=== PATIENT | male | born 1950 | race Caucasian/White ===

== ENCOUNTER 2016-08-26 21:48 | Emergency (ER) | payer MEDICARE, OTHER ==
[2016-08-26 22:49] LABS: URINE BILIRUBIN 1+ (NEGATIVE); URINE BLOOD 2+ (NEGATIVE); URINE GLUCOSE (UA) 250 mg/dL (NORMAL); URINE KETONE TRACE (NEGATIVE); URINE LEUKOCYTE ESTERASE TRACE (NEGATIVE); URINE NITRATE NEGATIVE (NEGATIVE); URINE PROTEIN 2+ (NEGATIVE)
[2016-08-26 23:16] LABS: URINE AMORPHOUS SEDIMENT 1+; URINE BACTERIA FEW (NONE SEEN); URINE SQUAMOUS EPITHELIAL CELL 0-10 /[HPF] (NONE SEEN)
== END 2016-08-26 23:45 | disposition home or self-care (01) ==
LOC: ER 21:48
PROVIDERS: General Practice
DX: N39.0 Urinary tract infection, site not specified (principal); R31.9 Hematuria, unspecified; R80.9 Proteinuria, unspecified; R50.9 Fever, unspecified; R05 Cough; R53.1 Weakness; M79.1 Myalgia; F17.220 Nicotine dependence, chewing tobacco, uncomplicated; Z88.6 Allergy status to analgesic agent
CPT/HCPCS: 81001; 87070; 87086; 87400; 87880; 99283